=== PATIENT | female | born 2000 | race Two or more races ===

== ENCOUNTER → 2024-07-23 10:49 | Outpatient (CLI) | payer OTHER | END | disposition home or self-care (01) | LOC: PRENATAL 10:49 | PROVIDERS: ATTEND Obstetrics & Gynecology Maternal & Fetal Medicine | DX: O44.00 Complete placenta previa NOS or without hemorrhage, unspecified trimester (principal); O36.8199 Decreased fetal movements, unspecified trimester, other fetus; O34.219 Maternal care for unspecified type scar from previous cesarean delivery; O36.1999 Maternal care for other isoimmunization, unspecified trimester, other fetus; O99.210 Obesity complicating pregnancy, unspecified trimester; Z3A.34 34 weeks gestation of pregnancy ==